=== PATIENT | female | born 1955 | race African-American/Black ===

== ENCOUNTER 2020-12-24 08:18 | Emergency (ER) | payer OTHER, SELFPAY ==
[2020-12-24] MEDS ORDERED: Ventolin HFA Inhaler 60 PUFF INHALER ONE (09:10)
[2020-12-24] MEDS ORDERED: predniSONE 20 MG TAB ONE (09:12)
[2020-12-24 17:37] LABS: SARS-CoV-2 PCR by NAA Not Detected (NotDetected)
== END 2020-12-24 10:52 | disposition home or self-care (01) ==
LOC: CSHERS 08:18
DX: J45.901 Unspecified asthma with (acute) exacerbation (principal); J06.9 Acute upper respiratory infection, unspecified; Z20.822 Contact with and (suspected) exposure to COVID-19
CPT/HCPCS: 71045; 87804; 93005; J7512; U0003; U0005

== ENCOUNTER 2020-12-31 14:16 | Emergency (ER) | payer OTHER, SELFPAY ==
[2020-12-31 15:18] LABS: #Eosinphils 0.1 10x3/uL (0.0-0.5); #Neutrophils 8.3 10x3/uL (1.5-8.4); %Basophils 0.4 % (0.0-2.0); %Eosinophils 0.8 % (0.0-6.0); %Lymphocytes 14.4 % (18.0-47.0); %Monocytes 8.8 % (0.0-10.0); %Neutrophils 75.2 % (40.0-75.0); Hemoglobin 12.8 g/dL (12.0-15.5); Mean Corpuscular HGB CONC 32.2 g/dL (32.0-36.0); Mean Corpuscular Hemoglobin 32.4 pg (27.0-33.0); Mean Corpuscular Volume 100.5 fl (81.6-98.3); Mean Platelet Volume 9.7 fl (7.4-10.4); Platelet Count 329 10x3/uL (150-450); RBC Distribution Width 12.9 % (11.5-14.5); Red Blood Cell (RBC) Count 3.95 10x6/uL (3.90-5.03)
[2020-12-31 15:20] LABS: ALT (SGPT) 12 U/L (8-55); AST (SGOT) 15 U/L (5-34); Albumin 4.1 g/dL (3.4-4.8); Alkaline Phosphatase 80 U/L (40-110); Anion Gap 13 mmol/L (10-20); BUN (Urea Nitrogen) 5 mg/dL (9.8-20.1); Bilirubin, Total 0.6 mg/dL (0.2-1.2); Calc. Creatinine Clearance 0 mL/min (70-130); Calcium 9.7 mg/dL (7.8-10.44); Carbon Dioxide 31 mmol/L (23-31); Chloride 98 mmol/L (98-107); Globulin 3.5 g/dL (2.4-3.5); Glucose 96 mg/dL (80-115); Potassium 4.3 mmol/L (3.5-5.1); Protein, Total 7.6 g/dL (5.8-8.1); Sodium 138 mmol/L (136-145)
[2020-12-31] MEDS ORDERED: Dexamethasone 10 MG/ML VIAL ONE (15:55)
== END 2020-12-31 16:31 | disposition home or self-care (01) ==
LOC: CSHERS 14:16
DX: J45.901 Unspecified asthma with (acute) exacerbation (principal); J44.9 Chronic obstructive pulmonary disease, unspecified
CPT/HCPCS: 36415; 71045; 80053; 83605; 83880; 84484; 85025; 87040; 87149; 93005; 94760; 96374; J1100; J7620

== ENCOUNTER 2021-07-26 13:24 | Emergency (ER) | payer OTHER ==
[2021-07-26 14:50] LABS: #Eosinphils 0.1 10x3/uL (0.0-0.5); #Monocytes 0.4 10x3/uL (0.0-1.1); #Neutrophils 2.7 10x3/uL (1.5-8.4); %Basophils 0.9 % (0.0-2.0); %Eosinophils 2.2 % (0.0-6.0); %Lymphocytes 29.5 % (18.0-47.0); %Monocytes 8.8 % (0.0-10.0); %Neutrophils 58.4 % (40.0-75.0); Hemoglobin 12.5 g/dL (12.0-15.5); Mean Corpuscular HGB CONC 32.2 g/dL (32.0-36.0); Mean Corpuscular Hemoglobin 32.6 pg (27.0-33.0); Mean Platelet Volume 9.4 fl (7.4-10.4); Platelet Count 284 10x3/uL (150-450); RBC Distribution Width 13.1 % (11.5-14.5); Red Blood Cell (RBC) Count 3.84 10x6/uL (3.90-5.03); White Blood Cell (WBC) Count 4.5 10x3/uL (3.5-10.5)
[2021-07-26 14:56] LABS: ALT (SGPT) 12 U/L (8-55); AST (SGOT) 16 U/L (5-34); Alkaline Phosphatase 62 U/L (40-110); Anion Gap 14 mmol/L (10-20); BUN (Urea Nitrogen) 6 mg/dL (9.8-20.1); Bilirubin, Total 0.4 mg/dL (0.2-1.2); Calc. Creatinine Clearance 0 mL/min (70-130); Calcium 9.1 mg/dL (7.8-10.44); Carbon Dioxide 29 mmol/L (23-31); Chloride 100 mmol/L (98-107); Globulin 2.4 g/dL (2.4-3.5); Glucose 98 mg/dL (80-115); Potassium 4.3 mmol/L (3.5-5.1); Protein, Total 6.4 g/dL (5.8-8.1); Sodium 139 mmol/L (136-145)
== END 2021-07-26 15:46 | disposition home or self-care (01) ==
LOC: CSHERS 13:24
DX: J44.1 Chronic obstructive pulmonary disease with (acute) exacerbation (principal); Z87.891 Personal history of nicotine dependence; Z79.51 Long term (current) use of inhaled steroids
CPT/HCPCS: 71045; 80053; 83880; 84484; 85025; 93005; J7620

== ENCOUNTER 2021-09-28 15:55 | Emergency (ER) | payer OTHER | END 2021-09-28 17:21 | disposition home or self-care (01) | LOC: CSHERS 15:55 | DX: F41.9 Anxiety disorder, unspecified (principal); J44.9 Chronic obstructive pulmonary disease, unspecified; F17.210 Nicotine dependence, cigarettes, uncomplicated | CPT/HCPCS: 70450 ==

== ENCOUNTER 2021-10-15 14:24 | Emergency (ER) | payer OTHER | END 2021-10-15 15:52 | disposition home or self-care (01) | LOC: CSHERS 14:24 | DX: J44.1 Chronic obstructive pulmonary disease with (acute) exacerbation (principal); F17.210 Nicotine dependence, cigarettes, uncomplicated | CPT/HCPCS: 71045; 93005; 94640; 94760; J7620 ==

== ENCOUNTER 2022-03-26 14:12 | Emergency (ER) | payer OTHER ==
[2022-03-26 15:12] LABS: #Basophils 0.1 10x3/uL (0.0-0.2); #Eosinphils 0.1 10x3/uL (0.0-0.5); %Basophils 0.6 % (0.0-2.0); %Eosinophils 0.6 % (0.0-6.0); %Lymphocytes 13.8 % (18.0-47.0); %Monocytes 11.6 % (0.0-10.0); Hemoglobin 12.9 g/dL (12.0-15.5); Mean Corpuscular HGB CONC 32.9 g/dL (32.0-36.0); Mean Corpuscular Hemoglobin 32.3 pg (27.0-33.0); Mean Corpuscular Volume 98.2 fl (81.6-98.3); Mean Platelet Volume 9.7 fl (7.4-10.4); Platelet Count 333 10x3/uL (150-450); RBC Distribution Width 12.5 % (11.5-14.5); Red Blood Cell (RBC) Count 3.99 10x6/uL (3.90-5.03); White Blood Cell (WBC) Count 8.2 10x3/uL (3.5-10.5)
[2022-03-26 15:15] LABS: ALT (SGPT) 15 U/L (8-55); AST (SGOT) 16 U/L (5-34); Albumin 4.1 g/dL (3.4-4.8); Alkaline Phosphatase 83 U/L (40-110); Anion Gap 15 mmol/L (10-20); BUN (Urea Nitrogen) 4 mg/dL (9.8-20.1); Bilirubin, Total 0.7 mg/dL (0.2-1.2); Calc. Creatinine Clearance 0 mL/min (70-130); Calcium 9.8 mg/dL (7.8-10.44); Carbon Dioxide 31 mmol/L (23-31); Chloride 95 mmol/L (98-107); Estimated GFR 97; Globulin 3.3 g/dL (2.4-3.5); Glucose 117 mg/dL (80-115); Lipase 4 U/L (8-78); Potassium 4.7 mmol/L (3.5-5.1); Protein, Total 7.4 g/dL (5.8-8.1); Sodium 136 mmol/L (136-145)
[2022-03-26 15:44] LABS: SARS-CoV-2 NAA Rapid Test Not Detected (NotDetected)
[2022-03-26] MEDS ORDERED: methylPREDNISolone Sod Succ/PF 125 MG/2 ML VIAL ONE (16:49)
[2022-03-26] MEDS ORDERED: Ipratropium/Albuterol 3 ML NEB ONE (17:15)
== END 2022-03-26 18:31 | disposition home or self-care (01) ==
LOC: CSHERS 14:12
DX: J18.9 Pneumonia, unspecified organism (principal); F17.210 Nicotine dependence, cigarettes, uncomplicated
CPT/HCPCS: 36415; 71045; 80053; 83690; 83880; 84484; 85025; 93005; 94760; 96361; 96374; J2930; J7620

== ENCOUNTER 2022-06-24 16:41 | Emergency (ER) | payer OTHER, SELFPAY ==
[2022-06-24 17:49] LABS: Hemoglobin 12.8 g/dL (12.0-15.5); Mean Corpuscular HGB CONC 32.1 g/dL (32.0-36.0); Mean Corpuscular Hemoglobin 31.2 pg (27.0-33.0); Mean Corpuscular Volume 97.3 fl (81.6-98.3); Mean Platelet Volume 9.6 fl (7.4-10.4); Platelet Count 338 10x3/uL (150-450); RBC Distribution Width 13.2 % (11.5-14.5)
[2022-06-24 17:55] LABS: ALT (SGPT) 16 U/L (8-55); AST (SGOT) 18 U/L (5-34); Albumin 4.3 g/dL (3.4-4.8); Alkaline Phosphatase 78 U/L (40-110); Anion Gap 13 mmol/L (10-20); BUN (Urea Nitrogen) 6 mg/dL (9.8-20.1); Bilirubin, Total 0.4 mg/dL (0.2-1.2); Calc. Creatinine Clearance 0 mL/min (70-130); Calcium 9.3 mg/dL (7.8-10.44); Carbon Dioxide 32 mmol/L (23-31); Chloride 96 mmol/L (98-107); Estimated GFR 97; Globulin 2.8 g/dL (2.4-3.5); Glucose 84 mg/dL (80-115); Potassium 3.9 mmol/L (3.5-5.1); Protein, Total 7.1 g/dL (5.8-8.1); Sodium 137 mmol/L (136-145)
[2022-06-24 18:54] LABS: Eosinophils 3 % (0-10); Lymphocytes 27 % (21-51); Monocytes 9 % (0-10); Neutrophil 52 % (42-75)
[2022-06-24 18:57] LABS: Reactive Lymphocytes 8 % (0-10)
[2022-06-24 18:59] LABS: Platelet Morphology Comment Appears Adequate
[2022-06-24 19:00] LABS: MDiff Complete? YES; RBC Morphology Normal
== END 2022-06-24 19:43 | disposition home or self-care (01) ==
LOC: CSHERS 16:41
DX: J18.9 Pneumonia, unspecified organism (principal); F17.210 Nicotine dependence, cigarettes, uncomplicated
CPT/HCPCS: 36415; 71046; 80053; 83605; 83880; 84484; 85025; 93005; 94640; J7611

== ENCOUNTER 2022-10-05 17:25 | Emergency (ER) | payer BC, OTHER, SELFPAY ==
[2022-10-05] MEDS ORDERED: predniSONE 20 MG TAB ONE (17:57)
== END 2022-10-05 18:52 | disposition home or self-care (01) ==
LOC: CSHERS 17:25
DX: J44.1 Chronic obstructive pulmonary disease with (acute) exacerbation (principal); F17.210 Nicotine dependence, cigarettes, uncomplicated
CPT/HCPCS: 99284; J7512

== ENCOUNTER 2022-10-29 17:27 | Emergency (ER) | payer OTHER ==
[2022-10-29 19:37] LABS: SARS-CoV-2 NAA Rapid Test DETECTED (NotDetected)
[2022-10-29] MEDS ORDERED: predniSONE 20 MG TAB ONE (20:32)
[2022-10-29] MEDS ORDERED: Ipratropium/Albuterol 3 ML NEB ONE (20:33)
== END 2022-10-29 21:06 | disposition home or self-care (01) ==
LOC: CSHERS 17:27
DX: U07.1 COVID-19 (principal); J44.1 Chronic obstructive pulmonary disease with (acute) exacerbation; Z87.891 Personal history of nicotine dependence
CPT/HCPCS: 71045; 93005; 93010; J7512; J7620

== ENCOUNTER 2022-11-01 14:32 | Emergency (ER) | payer OTHER ==
[2022-11-01] MEDS ORDERED: Ipratropium/Albuterol 3 ML NEB ONE (15:00)
[2022-11-01] MEDS ORDERED: Dexamethasone 10 MG/ML VIAL ONE (15:02)
[2022-11-01] MEDS ORDERED: Magnesium 2 GM/50 ML BAG (IN WATER) ONE (15:02)
[2022-11-01 15:42] LABS: #Basophils 0.1 10x3/uL (0.0-0.2); #Eosinphils 0.1 10x3/uL (0.0-0.5); #Monocytes 0.5 10x3/uL (0.0-1.1); #Neutrophils 2.5 10x3/uL (1.5-8.4); %Eosinophils 2.4 % (0.0-6.0); %Lymphocytes 36.8 % (18.0-47.0); %Monocytes 9.8 % (0.0-10.0); %Neutrophils 49.8 % (40.0-75.0); Hematocrit 42.9 % (34.9-44.5); Mean Corpuscular HGB CONC 32.6 g/dL (32.0-36.0); Mean Corpuscular Hemoglobin 31.3 pg (27.0-33.0); Mean Platelet Volume 9.1 fl (7.4-10.4); Platelet Count 355 10x3/uL (150-450); RBC Distribution Width 12.8 % (11.5-14.5); Red Blood Cell (RBC) Count 4.47 10x6/uL (3.90-5.03); White Blood Cell (WBC) Count 5.1 10x3/uL (3.5-10.5)
[2022-11-01 15:57] LABS: ALT (SGPT) 17 U/L (8-55); AST (SGOT) 16 U/L (5-34); Albumin 4.3 g/dL (3.4-4.8); Alkaline Phosphatase 65 U/L (40-110); Anion Gap 11 mmol/L (10-20); BUN (Urea Nitrogen) 6 mg/dL (9.8-20.1); Bilirubin, Total 0.5 mg/dL (0.2-1.2); Calc. Creatinine Clearance 0 mL/min (70-130); Calcium 9.6 mg/dL (7.8-10.44); Carbon Dioxide 33 mmol/L (23-31); Chloride 96 mmol/L (98-107); Estimated GFR 93; Globulin 2.9 g/dL (2.4-3.5); Glucose 80 mg/dL (80-115); Lipase 8 U/L (8-78); Potassium 3.4 mmol/L (3.5-5.1); Protein, Total 7.2 g/dL (5.8-8.1); Sodium 137 mmol/L (136-145)
[2022-11-01 16:02] LABS: Troponin I 0.011 ng/mL (< 0.028)
== END 2022-11-01 16:40 | disposition home or self-care (01) ==
LOC: CSHERS 14:32
DX: J44.1 Chronic obstructive pulmonary disease with (acute) exacerbation (principal); Z87.891 Personal history of nicotine dependence
CPT/HCPCS: 36415; 80053; 83690; 83880; 84484; 85025; 93005; 94640; 96374; 96375; J1100; J3475; J7611; J7620

== ENCOUNTER 2022-11-21 22:13 | Emergency (ER) | payer OTHER ==
[2022-11-21] MEDS ORDERED: methylPREDNISolone Sod Succ/PF 125 MG/2 ML VIAL ONE (22:31)
[2022-11-21] MEDS ORDERED: Magnesium 2 GM/50 ML BAG (IN WATER) ONE (22:32)
[2022-11-21] MEDS ORDERED: Dexamethasone 10 MG/ML VIAL ONE (22:33)
[2022-11-21] MEDS ORDERED: Ipratropium/Albuterol 3 ML NEB ONE (22:34)
== END 2022-11-22 00:16 | disposition home or self-care (01) ==
LOC: CSHERS 22:13
DX: J44.1 Chronic obstructive pulmonary disease with (acute) exacerbation (principal)
CPT/HCPCS: 71045; 96374; J1100; J2930; J3475; J7620

== ENCOUNTER 2023-03-02 15:17 | Inpatient (IN) | payer OTHER ==
[2023-03-02 15:52] LABS: #Eosinphils 0.2 10x3/uL (0.0-0.5); #Monocytes 0.7 10x3/uL (0.0-1.1); #Neutrophils 4.1 10x3/uL (1.5-8.4); %Basophils 0.3 % (0.0-2.0); %Eosinophils 2.4 % (0.0-6.0); %Lymphocytes 21.5 % (18.0-47.0); %Neutrophils 64.5 % (40.0-75.0); Hematocrit 44.2 % (34.9-44.5); Hemoglobin 14.7 g/dL (12.0-15.5); Mean Corpuscular HGB CONC 33.3 g/dL (32.0-36.0); Mean Corpuscular Hemoglobin 32.5 pg (27.0-33.0); Mean Corpuscular Volume 97.8 fl (81.6-98.3); Mean Platelet Volume 9.8 fl (7.4-10.4); Platelet Count 279 10x3/uL (150-450); RBC Distribution Width 11.9 % (11.5-14.5); Red Blood Cell (RBC) Count 4.52 10x6/uL (3.90-5.03); White Blood Cell (WBC) Count 6.4 10x3/uL (3.5-10.5)
[2023-03-02 16:01] LABS: ALT (SGPT) 20 U/L (8-55); AST (SGOT) 26 U/L (5-34); Albumin 4.3 g/dL (3.4-4.8); Alkaline Phosphatase 72 U/L (40-110); Anion Gap 13 mmol/L (10-20); BUN (Urea Nitrogen) 9 mg/dL (9.8-20.1); Bilirubin, Total 0.5 mg/dL (0.2-1.2); Calc. Creatinine Clearance 0 mL/min (70-130); Calcium 9.7 mg/dL (7.8-10.44); Carbon Dioxide 31 mmol/L (23-31); Chloride 95 mmol/L (98-107); Estimated GFR 96; Globulin 2.9 g/dL (2.4-3.5); Glucose 129 mg/dL (80-115); Potassium 4.3 mmol/L (3.5-5.1); Protein, Total 7.2 g/dL (5.8-8.1); Sodium 135 mmol/L (136-145)
[2023-03-02 16:03] LABS: Troponin I Less than 0.010 ng/mL (< 0.028)
[2023-03-02] MEDS ORDERED: Magnesium 2 GM/50 ML BAG (IN WATER) ONE (16:04)
[2023-03-02] MEDS ORDERED: methylPREDNISolone Sod Succ/PF 125 MG/2 ML VIAL ONE (16:04)
[2023-03-02] MEDS ORDERED: Ipratropium/Albuterol 3 ML NEB ONE (16:05)
[2023-03-02] MEDS ORDERED: Ondansetron PF 4 MG/2 ML Vial IVP PRN (19:11)
[2023-03-02] MEDS ORDERED: Senokot S 8.6-50 MG TAB PO PRN (19:11)
[2023-03-02] MEDS ORDERED: Calcium Carbonate 500 MG ChewTAB PO PRN (19:11)
[2023-03-02] MEDS ORDERED: Ipratropium/Albuterol 3 ML NEB NEB PRN (19:14)
[2023-03-02 19:19] LABS: Troponin I Less than 0.010 ng/mL (< 0.028)
[2023-03-02] MEDS ORDERED: Azithromycin 500 MG in Sodium Chloride 0.9% 250 ML 250 ML IVPB SCH (20:00)
[2023-03-02] MEDS: Famotidine 20 MG TAB PO SCH (22:05)
[2023-03-02] MEDS: Benzonatate 100 MG CAP PO SCH (22:05)
[2023-03-02] MEDS: guaiFENesin ER 600 MG TAB PO SCH (22:05)
[2023-03-02 22:32] LABS: Troponin I 0.011 ng/mL (< 0.028)
[2023-03-02] MEDS: methylPREDNISolone Sod Succ 40 MG VIAL IVP SCH (23:40)
[2023-03-03] MEDS: hydrOXYzine 25 MG TAB PO PRN ×2 (00:06→20:23)
[2023-03-03] MEDS: Ipratropium/Albuterol 3 ML NEB NEB SCH ×4 (01:24→20:00)
[2023-03-03 05:06] LABS: Anion Gap 14 mmol/L (10-20); BUN (Urea Nitrogen) 11 mg/dL (9.8-20.1); Calc. Creatinine Clearance 86 mL/min (70-130); Calcium 9.3 mg/dL (7.8-10.44); Carbon Dioxide 29 mmol/L (23-31); Chloride 97 mmol/L (98-107); Estimated GFR 99; Glucose 125 mg/dL (80-115); Potassium 4.2 mmol/L (3.5-5.1); Sodium 136 mmol/L (136-145)
[2023-03-03] MEDS: methylPREDNISolone Sod Succ 40 MG VIAL IVP SCH ×2 (06:49→14:34)
[2023-03-03] MEDS: Benzonatate 100 MG CAP PO SCH ×3 (08:43→20:23)
[2023-03-03] MEDS: Enoxaparin 40 MG (0.4 mL) SYRINGE SC SCH (08:43)
[2023-03-03] MEDS: Famotidine 20 MG TAB PO SCH ×2 (08:43→20:23)
[2023-03-03] MEDS: guaiFENesin ER 600 MG TAB PO SCH ×2 (08:43→20:23)
[2023-03-03] MEDS ORDERED: FLU VACC QS2023(65UP)/MF59C/PF 60 MCG/0.5 ML SYRINGE IM ONE (09:00)
[2023-03-03] MEDS: Mometasone/Formoterol 200/5 60 PUFF INH SCH ×2 (09:42→20:10)
[2023-03-03 15:41] LABS: Actual Bicarbonate (HCO3a) 32.1 mEq/L (22-28); Analyzer IN Cardio CS ICU; Base Excess (BEa) 6.7 mEq/L (-2.0 to +3.0); CO2 Tension 48.4 mmHg (35.0-45.0); Calcium, Ionized (arterial) 1.19 mmol/L (1.12-1.30); Hematocrit-ABG 42 % (36.0-47.0); Hemoglobin (Hb) 14.2 g/dL (12.0-16.0); O2 Tension (PaO2), arterial 75.9 mmHg (> 80.0); Potassium - ABG Lab 3.92 mmol/L (3.70-5.30); Puncture Site RRA; pH, Arterial 7.439 (7.35-7.45)
[2023-03-03] MEDS: Azithromycin 250 MG TAB PO SCH (20:23)
[2023-03-04] MEDS: methylPREDNISolone Sod Succ 40 MG VIAL IVP SCH ×3 (00:05→14:52)
[2023-03-04] MEDS: Ipratropium/Albuterol 3 ML NEB NEB SCH ×4 (01:10→19:00)
[2023-03-04] MEDS: Mometasone/Formoterol 200/5 60 PUFF INH SCH ×3 (07:34→18:30)
[2023-03-04] MEDS: guaiFENesin ER 600 MG TAB PO SCH ×2 (08:15→21:22)
[2023-03-04] MEDS: Benzonatate 100 MG CAP PO SCH ×3 (08:15→21:22)
[2023-03-04] MEDS: Enoxaparin 40 MG (0.4 mL) SYRINGE SC SCH (08:15)
[2023-03-04] MEDS: Famotidine 20 MG TAB PO SCH ×2 (08:15→21:22)
[2023-03-04] MEDS: Azithromycin 250 MG TAB PO SCH (21:22)
[2023-03-05] MEDS: methylPREDNISolone Sod Succ 40 MG VIAL IVP SCH ×2 (01:11→06:54)
[2023-03-05] MEDS: Ipratropium/Albuterol 3 ML NEB NEB SCH ×4 (01:26→19:05)
[2023-03-05 05:41] LABS: #Monocytes 0.4 10x3/uL (0.0-1.1); #Neutrophils 7.8 10x3/uL (1.5-8.4); %Basophils 0.1 % (0.0-2.0); %Lymphocytes 7.1 % (18.0-47.0); %Monocytes 4.6 % (0.0-10.0); %Neutrophils 87.9 % (40.0-75.0); Hematocrit 39.9 % (34.9-44.5); Hemoglobin 13.4 g/dL (12.0-15.5); Mean Corpuscular HGB CONC 33.6 g/dL (32.0-36.0); Mean Corpuscular Hemoglobin 32.5 pg (27.0-33.0); Mean Corpuscular Volume 96.8 fl (81.6-98.3); Mean Platelet Volume 9.9 fl (7.4-10.4); Platelet Count 311 10x3/uL (150-450); Red Blood Cell (RBC) Count 4.12 10x6/uL (3.90-5.03); White Blood Cell (WBC) Count 8.9 10x3/uL (3.5-10.5)
[2023-03-05 05:58] LABS: Anion Gap 11 mmol/L (10-20); BUN (Urea Nitrogen) 13 mg/dL (9.8-20.1); Calc. Creatinine Clearance 69 mL/min (70-130); Calcium 9.2 mg/dL (7.8-10.44); Carbon Dioxide 31 mmol/L (23-31); Chloride 99 mmol/L (98-107); Estimated GFR 98; Glucose 179 mg/dL (80-115); Potassium 3.7 mmol/L (3.5-5.1); Sodium 137 mmol/L (136-145)
[2023-03-05] MEDS: Guaifenesin DM 100-10/5 ML UDCUP PO PRN (06:53)
[2023-03-05] MEDS: Mometasone/Formoterol 200/5 60 PUFF INH SCH ×2 (07:04→19:05)
[2023-03-05] MEDS: Benzonatate 100 MG CAP PO SCH ×3 (09:41→21:49)
[2023-03-05] MEDS: guaiFENesin ER 600 MG TAB PO SCH ×2 (09:42→21:49)
[2023-03-05] MEDS: Famotidine 20 MG TAB PO SCH ×2 (09:42→21:49)
[2023-03-05] MEDS: Enoxaparin 40 MG (0.4 mL) SYRINGE SC SCH (09:43)
[2023-03-05 10:23] VITALS: BMI 14.6
[2023-03-05] MEDS ORDERED: Sertraline 100 MG TAB PO SCH (13:30)
[2023-03-05] MEDS: Azithromycin 250 MG TAB PO SCH (21:48)
[2023-03-06] MEDS: Ipratropium/Albuterol 3 ML NEB NEB SCH ×2 (01:30→06:50)
[2023-03-06] MEDS: Guaifenesin DM 100-10/5 ML UDCUP PO PRN (04:39)
[2023-03-06 06:14] LABS: #Monocytes 1.1 10x3/uL (0.0-1.1); #Neutrophils 5.6 10x3/uL (1.5-8.4); %Basophils 0.1 % (0.0-2.0); %Eosinophils 0.1 % (0.0-6.0); %Monocytes 11.3 % (0.0-10.0); %Neutrophils 58.2 % (40.0-75.0); Hematocrit 37.6 % (34.9-44.5); Hemoglobin 12.5 g/dL (12.0-15.5); Mean Corpuscular HGB CONC 33.2 g/dL (32.0-36.0); Mean Corpuscular Hemoglobin 32.4 pg (27.0-33.0); Mean Corpuscular Volume 97.4 fl (81.6-98.3); Mean Platelet Volume 9.9 fl (7.4-10.4); Platelet Count 319 10x3/uL (150-450); Red Blood Cell (RBC) Count 3.86 10x6/uL (3.90-5.03); White Blood Cell (WBC) Count 9.7 10x3/uL (3.5-10.5)
[2023-03-06 06:22] LABS: Anion Gap 10 mmol/L (10-20); BUN (Urea Nitrogen) 15 mg/dL (9.8-20.1); Calc. Creatinine Clearance 70 mL/min (70-130); Calcium 8.9 mg/dL (7.8-10.44); Carbon Dioxide 33 mmol/L (23-31); Chloride 96 mmol/L (98-107); Estimated GFR 98; Glucose 120 mg/dL (80-115); Potassium 3.2 mmol/L (3.5-5.1); Sodium 136 mmol/L (136-145)
[2023-03-06] MEDS: Mometasone/Formoterol 200/5 60 PUFF INH SCH (06:50)
[2023-03-06] MEDS ORDERED: predniSONE 20 MG TAB PO SCH (08:00)
[2023-03-06] MEDS ORDERED: Potassium Chloride 20 MEQ TAB PO SCH (08:00)
[2023-03-06] MEDS: guaiFENesin ER 600 MG TAB PO SCH (08:03)
[2023-03-06] MEDS: Benzonatate 100 MG CAP PO SCH (08:03)
[2023-03-06] MEDS: Famotidine 20 MG TAB PO SCH (08:04)
[2023-03-06] MEDS: Enoxaparin 40 MG (0.4 mL) SYRINGE SC SCH (08:04)
[2023-03-06] MEDS ORDERED: Sertraline 100 MG TAB PO SCH (09:00)
[2023-03-06 12:11] VITALS: BP 145/71; TEMP 97.5
== END 2023-03-06 12:56 | disposition home or self-care (01) | DRG 189 ==
LOC: CSHERS 15:17 → CSHICU 18:20 → CSHTELE 03-04 19:49
PROVIDERS: ADMIT Internal Medicine; ATTEND Internal Medicine
PROC: 5A09357 Assistance with Respiratory Ventilation, Less than 24 Consecutive Hours, Continuous Positive Airway Pressure (ICD-10-PCS; 2023-03-02)
PROC: 4A033R1 Measurement of Arterial Saturation, Peripheral, Percutaneous Approach (ICD-10-PCS; principal; 2023-03-03)
DX: J96.01 Acute respiratory failure with hypoxia (principal); J44.1 Chronic obstructive pulmonary disease with (acute) exacerbation; E44.0 Moderate protein-calorie malnutrition; R65.10 Systemic inflammatory response syndrome (SIRS) of non-infectious origin without acute organ dysfunction; Z90.710 Acquired absence of both cervix and uterus; Z98.890 Other specified postprocedural states; F41.9 Anxiety disorder, unspecified; F32.A Depression, unspecified; Z79.899 Other long term (current) drug therapy; Z87.891 Personal history of nicotine dependence
CPT/HCPCS: 36415; 36600; 70450; 71045; 80048; 80053; 82805; 83880; 84484; 85025; 93005; 94640; 94660; 94760; 94762; 96365; 96375; J0456; J1650; J2920; J2930; J3475; J7050; J7512; J7620

== ENCOUNTER 2023-08-19 14:04 | Emergency (ER) | payer OTHER ==
[2023-08-19] MEDS ORDERED: Ipratropium/Albuterol 3 ML NEB ONE (14:15)
[2023-08-19] MEDS ORDERED: Dexamethasone 10 MG/ML VIAL ONE (14:34)
[2023-08-19] MEDS ORDERED: Azithromycin 500 MG VIAL ONE (14:34)
[2023-08-19] MEDS ORDERED: cefTRIAXone (ROCEPHIN) 1 GM VIAL ONE (14:34)
[2023-08-19 14:35] LABS: #Basophils 0.05 10x3/uL (0.0-0.2); #Eosinphils 0.06 10x3/uL (0.0-0.5); #Monocytes 0.43 10x3/uL (0.0-1.1); #Neutrophils 2.93 10x3/uL (1.5-8.4); %Eosinophils 1.2 % (0.0-6.0); %Lymphocytes 28.7 % (18.0-47.0); %Monocytes 8.8 % (0.0-10.0); %Neutrophils 60.1 % (40.0-75.0); Hematocrit 39.1 % (34.9-44.5); Hemoglobin 13.6 g/dL (12.0-15.5); Mean Corpuscular HGB CONC 34.8 g/dL (32.0-36.0); Mean Corpuscular Hemoglobin 33.3 pg (27.0-33.0); Mean Corpuscular Volume 95.8 fL (81.6-98.3); Mean Platelet Volume 8.9 fL (7.4-10.4); Platelet Count 383 10x3/uL (150-450); RBC Distribution Width 12.2 % (11.5-14.5); Red Blood Cell (RBC) Count 4.08 10x6/uL (3.90-5.03); White Blood Cell (WBC) Count 4.9 10x3/uL (3.5-10.5)
[2023-08-19] MEDS ORDERED: Albuterol 2.5 MG (3 mL) NEB ONE (14:40)
[2023-08-19 14:46] LABS: ALT (SGPT) 19 U/L (8-55); AST (SGOT) 20 U/L (5-34); Albumin 4.3 g/dL (3.4-4.8); Alkaline Phosphatase 66 U/L (40-110); Anion Gap 12 mmol/L (10-20); BUN (Urea Nitrogen) 9 mg/dL (9.8-20.1); Bilirubin, Total 0.7 mg/dL (0.2-1.2); Calc. Creatinine Clearance 0 mL/min (70-130); Calcium 9.5 mg/dL (7.8-10.44); Carbon Dioxide 29 mmol/L (23-31); Chloride 97 mmol/L (98-107); Estimated GFR 92; Globulin 3.2 g/dL (2.4-3.5); Glucose 115 mg/dL (80-115); Potassium 3.7 mmol/L (3.5-5.1); Protein, Total 7.5 g/dL (5.8-8.1); Sodium 134 mmol/L (136-145)
[2023-08-19] MEDS ORDERED: Ventolin HFA Inhaler 60 PUFF INHALER ONE (16:16)
== END 2023-08-19 16:54 | disposition home or self-care (01) ==
LOC: CSHERS 14:04
DX: J44.1 Chronic obstructive pulmonary disease with (acute) exacerbation (principal); Z55.6 Problems related to health literacy
CPT/HCPCS: 71045; 80053; 85025; 93005; 94640; 94760; 96365; 96367; 96375; J0456; J0696; J1100; J7611; J7620

== ENCOUNTER 2023-09-02 09:56 | Emergency (ER) | payer OTHER ==
[2023-09-02] MEDS ORDERED: Dexamethasone 10 MG/ML VIAL ONE (10:23)
== END 2023-09-02 10:40 | disposition home or self-care (01) ==
LOC: CSHERS 09:56
DX: J44.89 Other specified chronic obstructive pulmonary disease (principal)
CPT/HCPCS: 93005; 93010; 96374; J1100

== ENCOUNTER 2024-11-13 14:23 | Emergency (ER) | payer MEDICARE, OTHER ==
[2024-11-13 15:00] LABS: #Basophils 0.08 10x3/uL (0.0-0.2); #Eosinophils 0.85 10x3/uL (0.0-0.5); #Monocytes 0.50 10x3/uL (0.0-1.1); #Neutrophils 1.98 10x3/uL (1.5-8.4); %Basophils 1.7 % (0.0-2.0); %Eosinophils 17.7 % (0.0-6.0); %Lymphocytes 28.8 % (18.0-47.0); %Monocytes 10.4 % (0.0-10.0); %Neutrophils 41.2 % (40.0-75.0); Hematocrit 39.7 % (34.9-44.5); Hemoglobin 12.1 g/dL (12.0-15.5); Mean Corpuscular Hemoglobin 28.7 pg (27.0-33.0); Mean Corpuscular Volume 94.1 fL (81.6-98.3); Platelet Count 407 10x3/uL (150-450); Red Blood Cell (RBC) Count 4.22 10x6/uL (3.90-5.03); White Blood Cell (WBC) Count 4.80 10x3/uL (3.5-10.5)
[2024-11-13 15:20] LABS: Troponin I Less than 0.010 ng/mL (< 0.028)
[2024-11-13 15:25] LABS: ALT (SGPT) 18 U/L (Less than 34); AST (SGOT) 25 U/L (11-34); Albumin 4.3 g/dL (3.1-4.5); Alkaline Phosphatase 89 U/L (40-110); Anion Gap 13 mmol/L (10-20); BUN (Urea Nitrogen) 9 mg/dL (9.8-20.1); Bilirubin, Total 0.4 mg/dL (0.3-1.2); Calc. Creatinine Clearance 0 mL/min (70-130); Calcium 9.8 mg/dL (7.8-10.44); Carbon Dioxide 31 mmol/L (23-31); Chloride 97 mmol/L (98-107); Globulin 3.4 g/dL (2.4-3.5); Glucose 104 mg/dL (80-115); Potassium 4.6 mmol/L (3.5-5.1); Sodium 136 mmol/L (136-145)
[2024-11-13] MEDS ORDERED: Dexamethasone 10 MG/ML VIAL ONE (16:22)
[2024-11-13] MEDS ORDERED: Azithromycin 500 MG VIAL ONE (16:22)
== END 2024-11-13 18:05 | disposition home or self-care (01) ==
LOC: CSHERS 14:23
DX: J44.1 Chronic obstructive pulmonary disease with (acute) exacerbation (principal); Z55.6 Problems related to health literacy
CPT/HCPCS: 36415; 71045; 80053; 83880; 84484; 85025; 93005; 96365; 96375; J0456; J1100